=== PATIENT | female | born 1955 | race Caucasian/White ===

== ENCOUNTER 2019-03-19 18:47 | Emergency (ER) | payer OTHER ==
[2014-02-03 10:01] VITALS: Wt 86.2 kg
[2019-03-19] MEDS ORDERED: NS(*) 0.9% 1000 ML BAG 1,000 ML IV ONE (19:10)
[2019-03-19] MEDS ORDERED: PANTOPRAZOLE SOD(*)40 MG VIAL 80 MG in NS(*) 0.9% 100 ML BAG 100 ML IVPB ONE (19:10)
[2019-03-19] MEDS ORDERED: PANTOPRAZOLE SOD(*)40 MG VIAL 80 MG in NS(*) 0.9% 100 ML BAG 100 ML IV ONE (19:10)
[2019-03-19] MEDS ORDERED: OCTREOTIDE ACE 200 MCG/ML 5 ML VIAL IVP ONE ×2 (19:15→20:25)
[2019-03-19] MEDS ORDERED: ONDANSETRON 4 MG/2 ML VIAL IVP ONE ×2 (19:15→21:35)
[2019-03-19] MEDS ORDERED: OCTREOTIDE ACE 200 MCG/ML 5 ML 200 MCG in NS(*) 0.9% 100 ML BAG 99 ML IVPB ONE (19:15)
[2019-03-19] MEDS ORDERED: cefTRIAXone(*) 1 GM VIAL 1 GM in NS(*) 0.9% 100 ML MINI-BAG 100 ML IVPB ONE (19:15)
[2019-03-19 19:19] LABS: PLATELET COUNT, AUTOMATED 164 K/uL (150-450)
[2019-03-19 19:25] LABS: INR 1.54
[2019-03-19] MEDS ORDERED: LR(*) 1000 ML BAG 1,000 ML IV ONE (19:35)
--- NOTE | 2019-03-19 20:01 | ER Report ---
History and Physical Time Seen By MD: 18:50 Hx. of Stated Complaint: vomiting blood HPI/ROS CHIEF COMPLAINT: Vomiting blood, blood in stool HISTORY OF PRESENT ILLNESS: 63-year-old female history of hep C, cirrhosis, moderately heavy alcohol intake, admits to 4 beers 2-3 times a week, presents with maroon and black stools 6 since last night, and vomiting blood 8 today. She has continued abdominal discomfort in the epigastric area, that isn't relieved by vomiting, mild lightheadedness. She denies shortness of breath or chest pain. She denies other abdominal pain. She has history of but no other abdominal surgeries. She has never had a transfusion. She does not note easy bruising. She has had jaundice in the past but has not noted skin color changes. She has not had fevers or chills. REVIEW OF SYSTEMS: Constitutional: No fever, no chills. Eyes: No discharge. ENT: No sore throat. Cardiovascular: No chest pain, no palpitations. Respiratory: No cough, no shortness of breath. Gastrointestinal: above Genitourinary: No hematuria. Musculoskeletal: No back pain. Skin: No rashes. Neurological: No headache. Remainder of the 14 system rev: Yes Allergies: Coded Allergies: codeine (Verified Adverse Reaction, Mild, NAUSEA/VOMITING, 03/19/19) Home Meds Discontinued Reported Medications Venlafaxine Hcl (Venlafaxine Hcl) 150 Mg Tab.osm.24, 150 MG PO QAM 05/25/12 Reviewed Nurses Notes: Yes Old Medical Records Reviewed: Yes Hx Smoking: Yes Smoking Status: Current: Some Days Smoker Hx Substance Use Disorder: Yes (MARIJUANA) Hx Alcohol Use: Yes (QUIT JANUARY 25, 2014) Constitutional Vital Sign - Last 24 Hours 03/19/19 03/19/19 03/19/19 03/19/19 18:47 18:48 18:51 18:55 Pulse 120 Resp 16 B/P (MAP) 136/85 (102) 113/92 (99) 116/76 (89) Pulse Ox 100 03/19/19 03/19/19 03/19/19 03/19/19 19:00 19:01 19:02 19:37 Temp 97.9 Pulse 110 115 118 Resp 20 16 20 B/P (MAP) 108/76 (87) 116/76 125/71 (89) Pulse Ox 100 98 99 O2 Delivery Room Air 03/19/19 03/19/19 03/19/19 03/19/19 19:40 20:03 20:15 20:44 Pulse 116 117 112 98 Resp 19 14 12 13 B/P (MAP) 82/51 (61) 114/76 (89) 112/72 (85) 121/80 (94) Pulse Ox 100 99 100 99 Physical Exam General Appearance: The patient is alert, has no immediate need for airway protection and no signs of toxicity. [ ] Eyes: pupils equal and round, mild scleral icterus ENT, Mouth: mucous membranes dry Respiratory: There are no retractions, lungs are clear to auscultation. Cardiovascular: tachycardic, no m/r/g Gastrointestinal: mild epigastric ttp, bowel sounds nl, no distension Neurological: alert, oriented x 3 Skin: mild pallor Musculoskeletal: Extremities are nontender, nonswollen and have full range of motion. DIFFERENTIAL DIAGNOSIS: After history and physical exam differential diagnosis was considered for esophageal varicesm, gastric bleeding, infection, or other emergent cause of bleeding. Medical Decision Making Data Points Result Diagram: 03/19/19185203/19/191852 Laboratory Hematology Test 03/19/19 18:53 03/19/19 20:33 Neutrophils (%) (Auto) 84.2 % (39.4-72.5) H Lymphocytes (%) (Auto) 9.5 % (17.6-49.6) L Monocytes (%) (Auto) 6.0 % (4.1-12.4) Eosinophils (%) (Auto) 0.0 % (0.4-6.7) L Basophils (%) (Auto) 0.3 % (0.3-1.4) Nucleated RBC Relative Count (auto) 0.1 /100WBC Neutrophils # (Auto) 10.4 K/uL (2.0-7.4) H Lymphocytes # (Auto) 1.2 K/uL (1.3-3.6) L Monocytes # (Auto) 0.7 K/uL (0.3-1.0) Eosinophils # (Auto) 0.0 K/uL (0.0-0.5) Basophils # (Auto) 0.0 K/uL (0.0-0.1) Nucleated RBC Absolute Count (auto) 0.02 K/uL Chemistry Test 03/19/19 18:53 Sodium Level 141 mmol/L (137-145) Potassium Level 3.6 mmol/L (3.5-5.0) Chloride Level 109 mmol/L (98-107) Carbon Dioxide Level 20 mmol/L (22-31) Blood Urea Nitrogen 29 mg/dl (7-18) Creatinine 0.70 mg/dl (0.52-1.04) Glomerular Filtration Rate Calc > 60.0 Random Glucose 153 mg/dl (75-110) Calcium Level 8.3 mg/dl (8.4-10.2) Total Bilirubin 7.6 mg/dl (0.2-1.3) Aspartate Amino Transf (AST/SGOT) 64 U/L (0-35) Alanine Aminotransferase (ALT/SGPT) 48 U/L (0-56) Alkaline Phosphatase 75 U/L (0-126) Troponin I < 0.012 ng/ml Total Protein 6.5 g/dl (6.3-8.2) Albumin 3.0 g/dl (3.5-5.0) Lipase 143 U/L (23-300) Coagulation Test 03/19/19 18:53 Prothrombin Time 18.6 seconds (12.0-14.4) Prothromb Time International Ratio 1.54 Activated Partial Thromboplast Time 35 seconds (23-35) Toxicology Test 03/19/19 18:53 EKG/Imaging EKG Interpretation 12 lead EKG: Rhythm: sinus tachycardia Hughson: normal QRS: normal ST segments: normal sinus tachycardia with borderline prolonged qt Monitor Interpretation: Sinus Tachycardia Imaging X-ray: chest was obtained. I viewed the images myself on the PACS system. My interpretation of the images is: [email or web address]. The radiologist interpretation had no clinically significant variation from this interpretation. ED Course/Re-evaluation ED Course 63 y/o f hx hep c, cirrhosis, continued moderate etoh use, presents with 1 d of maroon/black stools x 6-8 and vomiting multiple episodes of brb. Last endoscopy was 2009 showing esophagitis. pt continues to have episodes of brb in ED x 2; last episode of 200mL at 2000 hrs, as well as 1 episode of dark stool at 2000 hrs. VS at 2019 = BP 112/72, HR 107; stable from arrival. While initial h/h are nl, in consult with GI/hospitalist at [facility], will transfuse 1 unit PRBC prior to transfer. I had initiated octreotide bolus of 50mcg followed by 50mcg/hr. Will give another 50mcg bolus and continue 50/hr infusion. Pt is accepted by; [facility] - hospitalist accepting for transfer to ICU. At 2044 pt has additional episode of hematemesis and dark stool, prior to transfusion. Decision to Disposition Date: Mar 19, 2019 Decision to Disposition Time: 20:30 Critical Care Time I spent a total of 125 minutes of critical care time in obtaining history, performing a physical exam, bedside monitoring of interventions, collecting and interpreting tests and discussion with consultants but not including time spent performing procedures. Depart Departure Latest Vital Signs Vital Signs Date Time Temp Pulse Resp B/P (MAP) Pulse Ox O2 Delivery O2 Flow Rate FiO2 03/19/19 20:44 98 13 121/80 (94) 99 03/19/19 19:01 97.9 Room Air Impression: Primary Impression: GI hemorrhage Condition: Critical Disposition: XFER TO [facility] ([facility] ICU) Referrals: JOHN DEUTSCH (PCP) Problem Qualifiers Primary Impression: GI hemorrhage GI bleed type/associated pathology: unspecified gastrointestinal hemorrhage type Qualified Codes: K92.2 - Gastrointestinal hemorrhage, unspecified JOSE MARTIN HOOK MD Mar 19, 2019 20:01
--- NOTE | 2019-03-19 20:24 | RADIOLOGY IMAGING REPORT ---
FACILITY: [facility] PATIENT NAME: Molly Ansari : 1955 MR: [id number] V: [id number] EXAM DATE: ORDERING PHYSICIAN: JOSE MARTIN HOOK TECHNOLOGIST: Location: Patient: Molly Ansari : 1955 Visit/Account:[id number] Date of Sevice: 03/19/2019 Portable chest, one view. HISTORY: Dyspnea. COMPARISON: 02/02/2014. EKG leads project on the chest. The thoracic aorta is minimally elongated consistent with age. The he art and mediastinum are otherwise unremarkable. No bulky adenopathy. Pulmonary vessels are unremark able. The lungs are clear. The pleural surfaces are unremarkable. No pneumothorax. No acute bony abn ormalities. IMPRESSION: No evidence of acute cardiopulmonary disease. Report Dictated By: Richard Edouard MD at 03/19/2019 8:15 PM Report E-Signed By: Richard Edouard MD at 03/19/2019 8:16 PM WSN:[id number]
--- NOTE | 2019-03-19 20:50 | EKG ---
FACILITY: [facility] PATIENT NAME: JERO LEARY : [id number] MR: [id number] V: [id number] EXAM DATE: ORDERING PHYSICIAN: JOSE MARTIN HOOK TECHNOLOGIST: NATE Test Reason : CARDIAC Blood Pressure : / mmHG Vent. Rate : 108 BPM Atrial Rate : 108 BPM P-R Int : 132 ms QRS Dur : 084 ms QT Int : 366 ms P-R-T Axes : 073 049 060 degrees QTc Int : [address]-T abnormalities QTc prolonged No previous ECGs available Confirmed by TOMMY WATSON ([id number]) on 03/20/2019 1:19:40 AM Referred By: Confirmed By:TOMMY WATSON
[2019-03-19 21:06] VITALS: BP 108/75
[2019-03-19] MEDS ORDERED: ONDANSETRON 4 MG/2 ML VIAL ONE (21:30)
== END 2019-03-19 21:59 | disposition short-term general hospital (02) ==
LOC: ER 19:21
DX: K92.2 Gastrointestinal hemorrhage, unspecified (principal)
CPT/HCPCS: 36430; 71045; 80320; 83690; 84484; 85025; 85027; 85610; 85730; 86850; 86900; 86901; 86920; 93005; 96365; 96366; 96375; 99291; 99292; C9113; J0696; J2354; J2405; J7030; J7050; J7120; P9016; 82040; 82247; 82310; 82374; 82435; 82565; 82947; 84075; 84132; 84155; 84295; 84450; 84460; 84520

== ENCOUNTER → 2019-03-19 | Outpatient (CLI) | payer OTHER ==
[2014-02-03 10:01] VITALS: BMI 34.2
[~2019-03-19] MED LIST: ANTIDEPRESSANTS; Cefuroxime Axetil PO; ESOM40CA42 PO; FURO40TA35 PO; HYDR1TAB PO; OMEP-153 PO; OXYC1TAB54 PO; PER PO; Propranolol Hcl PO; SPIR50TA30 PO; Tramadol Hcl PO; [UNRECOGNIZED DRUG - CODE] PO
== END ==
LOC: AMB 21:03
PROVIDERS: ATTEND Nurse Practitioner
DX: K92.2 Gastrointestinal hemorrhage, unspecified (principal)
CPT/HCPCS: A0425; A0426